=== PATIENT | female | born 1960 | race Hispanic/Latino ===

== ENCOUNTER → 2021-02-14 | Outpatient (CLI) | payer BC, OTHER ==
[~2021-02-14] MED LIST: GADOTERATE MEGLUMINE 10 MMOL/20 ML VIAL IV ONE
== END | disposition home or self-care (01) ==
LOC: RAH 13:11
PROVIDERS: ATTEND Family Medicine
DX: H40.053 Ocular hypertension, bilateral (principal)
CPT/HCPCS: 70543; 70553; A9575